=== PATIENT | male | born 1940 | race Caucasian/White ===

== ENCOUNTER 2020-03-05 09:44 | Outpatient (CLI) | payer MEDICARE, SELFPAY ==
--- NOTE | ~2020-03-05 | US_ITS ---
EXAMINATION: US carotid duplex BI DATE: 03/05/2020 10:18 INDICATION: Carotid stenosis TECHNIQUE: Grayscale, color Doppler, and pulsed Doppler images of the cervical carotid arteries were obtained. The degree of vessel stenosis is placed in one of the following categories: normal, <50%, 5 0-69%, >=70% but less than near-occlusion, near-occlusion, or total occlusion. Note that percent sten osis relative to normal distal artery lumen diameter is indirectly measured from velocity measurement s as described by Ervin, et al. Radiology 2003; 229:340-346. COMPARISON: None. FINDINGS: RIGHT: The right common carotid artery (CCA) peak systolic velocity (PSV) is 89 cm/s. The right internal car otid artery (ICA) PSV is 103 cm/s. The right ICA end-diastolic velocity (EDV) is 19 cm/s. The right I CA/CCA PSV ratio is 1.2. Grayscale and color Doppler images yield an estimate of <50% diameter reduct ion from plaque in the ICA. The external carotid artery (ECA) PSV is 79 cm/s. There is antegrade flow in the right vertebral artery. LEFT: The left CCA PSV is 95 cm/s. The left ICA PSV is 110 cm/s. The left ICA EDV is 26 cm/s. The left ICA/ CCA PSV ratio is 1.2. Grayscale and color Doppler images yield an estimate of <50% diameter reduction from plaque in the ICA. The ECA PSV is 83 cm/s. There is antegrade flow in the left vertebral artery . IMPRESSION: 1. <50% stenosis in the right internal carotid artery. 2. <50% stenosis in the left internal carotid artery. Reviewed, dictated and finalized at location B.
== END 2020-03-05 09:45 | disposition home or self-care (01) ==
LOC: CHSIMG 09:51
PROVIDERS: PCP Internal Medicine; Visit Provider Internal Medicine
DX: I65.23 Occlusion and stenosis of bilateral carotid arteries (principal)
CPT/HCPCS: 93880

== ENCOUNTER 2020-04-05 12:25 | Outpatient (CLI) | payer MEDICARE, SELFPAY ==
--- NOTE | ~2020-04-05 | US_ITS ---
EXAMINATION: US soft tissue UE LT DATE: 04/05/2020 13:01 INDICATION: Swelling at the posterior left upper arm TECHNIQUE: Multiple grayscale and Doppler ultrasound images of the region of concern at the posterior left upper arm were obtained. COMPARISON: None FINDINGS: In the region of concern there is a 5.4 x 4.5 x 2.1 cm ovoid mass which is isoechoic and with similar echotexture and septated internal architecture as the surrounding subcutaneous fat which is suspicio us for a lipoma. The underlying and adjacent musculature appears unremarkable. No abnormal fluid miguel ections identified. IMPRESSION: 1. 5.4 x 4.5 x 2.1 cm mass at the posterior left upper arm in the region of concern with relatively s imilar ultrasound appearance ascites surrounding fat most likely representing a lipoma. Would conside r CT or MRI for definitive determination. Reviewed, dictated and finalized at location A. IMPRESSION: 1. 5.4 x 4.5 x 2.1 cm mass at the posterior left upper arm in the region of con cern with relatively similar ultrasound appearance ascites surrounding fat most likely representing a lipoma. Would consider CT or MRI for definitive determin ation.
--- NOTE | ~2020-04-05 | XR_ITS ---
XR shoulder LT min 2V DATE: 04/05/2020 13:07 INDICATION: Left shoulder pain; swelling since flu shot one month ago TECHNIQUE: 4 views COMPARISON: None FINDINGS: There is degenerative change at the left acromioclavicular joint. No fracture, dislocation, periosteal reaction or bone destruction or abnormal soft tissue calcification at the left shoulder j oint is evident. IMPRESSION: Degenerative change at the left acromioclavicular joint Reviewed, dictated and finalized at location A.
== END 2020-04-05 12:26 | disposition home or self-care (01) ==
LOC: CHSIMG 12:26
PROVIDERS: PCP Internal Medicine; Visit Provider Internal Medicine
DX: M79.89 Other specified soft tissue disorders (principal); M25.512 Pain in left shoulder
CPT/HCPCS: 73030; 76882

== ENCOUNTER 2020-04-10 07:14 | Outpatient (CLI) | payer MEDICARE, SELFPAY ==
--- NOTE | ~2020-04-10 | MR_ITS ---
EXAMINATION: MR humerus LT wo/w con DATE: 04/10/2020 10:48 INDICATION: Mass and lump at the left upper limb TECHNIQUE: Magnetic resonance imaging (MRI) of the left humerus/upper limb was performed . without an d with 16 mL Multihance intravenous contrast. A marker was placed over the mass. Sequences included axial T1-weighted FSE, axial T2-weighted FS FSE, axial T1-weighted FS FSE, coronal T1-weighted FSE, c oronal PD-weighted FS FSE and sagittal PD-weighted FS FSE. Post contrast axial, sagittal and coronal T1-weighted FS FSE were also obtained. COMPARISON: Ultrasound dated 04/05/2020 FINDINGS: There is a homogeneously T1 hyperintense lipoma situated between the proximal triceps muscle and the deep and posterior margin of the deltoid muscle. The lipoma measures approximately 11.8 cm in cranioc audal length and 4.7 x 4.0 cm in maximal transaxial dimensions. No associated enhancing soft tissue c omponent. No abnormal fluid collections. Normal muscle bulk and signal at the left shoulder and upper arm. Bone alignment is normal with normal marrow signal. No left shoulder or elbow joint effusions. No pathologically enlarged left axillary lymphadenopathy. IMPRESSION: 1. 11.8 x 4.7 x 4.0 cm lipoma at the proximal posterior aspect of the left upper arm. Reviewed, dictated and finalized at location B. IMPRESSION: 1. 11.8 x 4.7 x 4.0 cm lipoma at the proximal posterior aspect of the left uppe r arm.
[2020-04-10 07:57] LABS: Estimated Glomerular Filt Rate > 60
== END 2020-04-10 07:15 | disposition home or self-care (01) ==
LOC: CHSIMG 07:15
PROVIDERS: PCP Internal Medicine; Visit Provider Internal Medicine
DX: R22.32 Localized swelling, mass and lump, left upper limb (principal)
CPT/HCPCS: 36415; 73220; A9577

== ENCOUNTER 2022-07-06 12:12 | Outpatient (CLI) | payer MEDICARE, SELFPAY ==
--- NOTE | ~2022-07-06 | US_ITS ---
EXAMINATION: US carotid duplex BI DATE: 07/06/2022 12:58 INDICATION: History of carotid stenosis. TECHNIQUE: Grayscale, color Doppler, and pulsed Doppler images of the cervical carotid arteries were obtained. The degree of vessel stenosis is placed in one of the following categories: normal, <50%, 5 0-69%, >=70% but less than near-occlusion, near-occlusion, or total occlusion. Note that percent sten osis relative to normal distal artery lumen diameter is indirectly measured from velocity measurement s as described by Ervin, et al. Radiology 2003; 229:340-346. Notes: Normal: Peak systolic velocity <125 centimeters/sec and no plaque <50%. Peak systolic velocity <125 ( EDV <40; ICA/CCA PSV ratio <2.0; used these factors only a tandem lesions or low cardiac output or co ntralateral disease) 50-69 %: PSV 125-230 (EDV 40-100; ratio 2-4) >= 70% but less than near occlusion: PSV greater than 230 (EDV > 100; ratio> 4.0) Near Occlusion: PSV that is variable; markedly narrowed lumen Occlusion: Absent flow on color/spectral Doppler and no lumen on banegas scale. COMPARISON: Ultrasound dated 03/05/2020. FINDINGS: RIGHT: The right common carotid artery (CCA) peak systolic velocity (PSV) is 76 cm/s. The right internal car otid artery (ICA) PSV is 114 cm/s. The right ICA end-diastolic velocity (EDV) is 32 cm/s. The right I CA/CCA PSV ratio is 1.5. The external carotid artery (ECA) PSV is 69 cm/s. There is antegrade flow in the right vertebral artery. LEFT: The left CCA PSV is 69 cm/s. The left ICA PSV is 154 cm/s. The left ICA EDV is 42 cm/s. The left ICA/ CCA PSV ratio is 2.2. The ECA PSV is 79 cm/s. There is antegrade flow in the left vertebral artery. IMPRESSION: 1. Less than 50% stenosis in the right internal carotid artery by sonographic criteria. 2. 50-69% stenosis in the left internal carotid artery by sonographic criteria. Reviewed, dictated and finalized at location A. RAM MANAGER TRANSPORTATION IMPRESSION: 1. Less than 50% stenosis in the right internal carotid artery by sonographic c kiersteneria. 2. 50-69% stenosis in the left internal carotid artery by sonographic criteria.
== END 2022-07-06 12:13 | disposition home or self-care (01) ==
LOC: CHSIMG 12:14
PROVIDERS: PCP Internal Medicine; Visit Provider Internal Medicine
DX: I65.23 Occlusion and stenosis of bilateral carotid arteries (principal)
CPT/HCPCS: 93880

== ENCOUNTER 2023-05-21 14:32 | Outpatient (CLI) | payer MEDICARE, SELFPAY ==
--- NOTE | ~2023-05-21 | US_ITS ---
EXAMINATION: US thyroid DATE: 05/21/2023 14:53 INDICATION: Hypothyroidism. TECHNIQUE: Multiple ultrasound images of the thyroid were obtained. COMPARISON: None. FINDINGS: The right thyroid lobe measures 3.4 x 1.0 x 1.2 cm. The left thyroid lobe measures 3.0 x 1.0 x 1.5 c m. In the right thyroid lobe, there is a 4 mm nodule. IMPRESSION: 1. Small thyroid nodule, likely not clinically significant. No follow-up is needed. Reviewed, dictated and finalized at location E. AL DRILL PRESS OPERATOR FOR PLASTIC IMPRESSION: 1. Small thyroid nodule, likely not clinically significant. No follow-up is nee ded.
== END 2023-05-21 14:33 | disposition home or self-care (01) ==
LOC: CHSIMG 14:33
PROVIDERS: PCP Internal Medicine; Visit Provider Internal Medicine
DX: E03.9 Hypothyroidism, unspecified (principal)
CPT/HCPCS: 76536

== ENCOUNTER 2023-10-22 07:05 | Outpatient (CLI) | payer MEDICARE, SELFPAY ==
--- NOTE | ~2023-10-22 | US_ITS ---
EXAMINATION: US carotid duplex BI DATE: 10/22/2023 07:45 INDICATION: Carotid stenosis. TECHNIQUE: Grayscale, color Doppler, and pulsed Doppler images of the cervical carotid arteries were obtained. The degree of vessel stenosis is placed in one of the following categories: normal, <50%, 5 0-69%, >=70% but less than near-occlusion, near-occlusion, or total occlusion. Note that percent sten osis relative to normal distal artery lumen diameter is indirectly measured from velocity measurement s as described by Ervin, et al. Radiology 2003; 229:340-346. COMPARISON: Ultrasound 07/06/2022 FINDINGS: RIGHT: The right common carotid artery (CCA) peak systolic velocity (PSV) is 94 cm/s. The right internal car otid artery (ICA) PSV is 124 cm/s. The right ICA end-diastolic velocity (EDV) is 28 cm/s. The right I CA/CCA PSV ratio is 1.3. Grayscale and color Doppler images yield an estimate of <50% diameter reduct ion from plaque in the ICA. There is antegrade flow in the right vertebral artery. LEFT: The left CCA PSV is 103 cm/s. The left ICA PSV is 151 cm/s. The left ICA EDV is 41 cm/s. The left ICA /CCA PSV ratio is 1.5. Grayscale and color Doppler images yield an estimate of <50% diameter reductio n from plaque in the ICA. There is antegrade flow in the left vertebral artery. IMPRESSION: 1. <50% stenosis in the right internal carotid artery. 2. <50% stenosis in the left internal carotid artery. Reviewed, dictated and finalized at location E.
== END 2023-10-22 07:06 | disposition home or self-care (01) ==
LOC: CHSIMG 07:08
PROVIDERS: PCP Internal Medicine; Visit Provider Internal Medicine
DX: I65.23 Occlusion and stenosis of bilateral carotid arteries (principal)
CPT/HCPCS: 93880

== ENCOUNTER → 2024-10-21 14:45 | Outpatient (REF) | payer MEDICARE, SELFPAY ==
--- OUTSIDE RECORDS SUMMARY | 2024-10-21 17:00 | XMS_ITS | Clinical Summary ---
Author Organization [facility] Address [address] [place] [address] Care Team Providers Care Forensic Social Worker Name Role Phone Unavailable Primary Care Provider Unavailabl e Source Comments [facility],non-owned Affiliates and Associated Physician Practices is amultiple site organization consisting of ambulatory clinics and hospital sitesin [place], [place], [place] and [place]. This disclosure is being madepursuant to the Care Everywhere program and may not contain all information available regarding this patient. Last updated 18.[facility] Social History Tobacco Use Types Packs/Day Years Used Date Smoking Tobacco: Never Assessed Sex and Gender Information Value Date Recorded Sex Assigned at Not on file Legal Sex Male 11:13 AM CDT Gender Identity Not on file Sexual Orientation Not on file Plan of Treatment Health Maintenance Due Date Last Done Comments DTAP/TDAP/TD VACCINES (1 - Tdap) 09/29/1959 PNEUMOCOCCAL VACCINE 50+ (1 of 1 - PCV) 1990 ZOSTER VACCINE (1 of 2) 1990 Respiratory Syncytial Virus (RSV) Vaccine Pt: or over 60 yrs (1 - 1-dose 75+ series) 09/29/2015 COVID-19 VACCINE ( - 2023-2 5 season) 2024 DEPRESSION SCREENING 07/02/2024 MEDICARE AWV CALENDAR YEAR 2024 INFLUENZA VACCINE (Season Ended) 2025 HEPATITIS B VACCINE Aged Out No longe r eligible based on patient's age to complete this topic HIB VACCINE Aged Out No longer eligi ble based on patient's age to complete this topic HPV VACCINE Aged Out No longer eligi ble based on patient's age to complete this topic MENINGOCOCCAL (Group B) VACC INE SHARED DECISION-MAKING Aged Out No longer eligibl e based on patient's age to complete this topic MENINGOCOCCAL GROUPS A/C/Y/W VACCINE Aged Out No longer eligible b ased on patient's age to complete this topic Insurance MANAGED MEDICARE ADV
--- OUTSIDE RECORDS SUMMARY | 2024-10-21 17:00 | XMS_ITS | Continuity of Care Document ---
Author Organization [facility] Address [address] [place] [address] [place] [address] Phone Care Team Providers Care Product Director Name Role Phone Prudencio Alan DO Unavailable Unavailable Advance Directives Directive Yes / No Effective Date File Name No Information Encounters Encounter Description Practice Location Reason(s) For Visit Diagnoses Date Provider Providers Copied on Encounter [facility], [address], [place], [place], [id number], [place] tel:[phone] [facility] No Information Waqas Haider. [address] [place], [address], [place]. tel:[phone] Family History Family Member Type Diagnosis Age At Onset No Information Payers Payer name Insurance type Covered republican ID Authoriza tion(s) No Information Social History Type Description Quantity Date Captured Comments Sex Male Smoking Status No Information Chief Complaint And Reason For Visit No Information Reason For Referral Reason For Referral No Information History Of Present Illness Encounter Date Complaint History Of Prese nt Illness No Information Functional Status Date Functional Assessmen t No Information Instructions Date Instruction Additional Infor mation No Information Assessments Type Assessment Date No Information Patient Care Teams Name Effective Dates (start - stop) Status Members No Information
--- OUTSIDE RECORDS SUMMARY | 2024-10-21 17:00 | XMS_ITS | Encounter Summary ---
Author Organization [facility] Address [address] [place] [address] Care Team Providers Care Narrow Gauge Engineer Name Role Phone Unavailable Primary Care Provider Unavailabl e Encounter Details Date Type Department Care Team (Late st Contact Info) Description 01/28/2020 Lab Requisition [facility] DermPath Lab [address] [place] [address] Jean-Pierre Washington MD [address] [place] [address] Social History Tobacco Use Types Packs/Day Years Used Date Smoking Tobacco: Never Assessed Sex and Gender Information Value Date Recorded Sex Assigned at Not on file Legal Sex Male 11:13 AM CDT Gender Identity Not on file Sexual Orientation Not on file documented as of this encounter Plan of Treatment Not on file documented as of this encounter Procedures Procedure Name Priority Date/Time Associated Diagnosis Comments DERMATOPATHOLOGY Routine 01/28/2020 12:0 0 AM CDT documented in this encounter Results * DERMATOPATHOLOGY (01/28/2020 12:00 AM CDT) Case Report Dermatopathology Report Case: [id number] Authorizing Provider: Jean-Pierre Washington MD Collected: 01/28/2020 12:00 AM Ordering Location: [facility] Lab Received: 01/28/2020 12:55 PM Pathologist: Fletcher Palmer MD Specimen: Skin, left distal ext FA 0 5:18 PM CDT DERMATOPATHOLOGY LABORATORY Final Diagnosis Specimen A. SKIN, left distal ext FA: DERMAL SCAR WITH OVERLYING EPIDERMAL CHANGES (L90.5) 0 5:18 PM CDT DERMATOPATHOLOGY LABORATORY Clinical History R/O HAK, scar, SCC, other. 0 5:18 PM CDT DERMATOPATHOLOGY LABORATORY Gross Description Specimen A: Received is one formalin filled container labeled with the patient's name and designated left distal ext FA. The specimen consists of a punch biopsy measuring [id number], bisected. Jar 0. 0 5:18 PM CDT DERMATOPATHOLOGY LABORATORY Microscopic Description Specimen A. SKIN, left distal ext FA: Sections show focally laminated fibroplasia and prominent blood vessels. There are plump fibrocytes and inflammation. Reactive epidermal changes are also identified consistent with a prior biopsy site. 0 5:18 PM CDT DERMATOPATHOLOGY LABORATORY Disclaimer An external and internal positive and negative controls are appropriate for the histochemical, immunohistochemical and immunofluorescence stain(s) in this case (if any), except where stated explicitly. The performance characteristics of the stain(s) cited in this report were developed and its performance characteristic determined by the Dermatopathology Laboratory at [facility], directed by Dr. Pauline Palmer. These tests need not be, and therefore are not, approved by the [place] Food and Drug Administration. The tests are used for clinical purposes. Billing Codes Specimen Charges Stain Charges 11994 1 0 5:18 PM CDT DERMATOPATHOLOGY LABORATORY Embedded Images 0 5:18 PM CDT DERMATOPATHOLOGY LABORATORY Pathology/Cytolog y TISSUE SPECIMEN FROM SKIN / Unknown 01/28/2020 01/28/2020 12:55 PM CDT us Jean-Pierre Washington MD LAB - PATHOLOGY/CYTOLOGY ORD ERABLES Final Result DERMATOPATHOLOGY LABORATORY [facility] - Department of Dermatology [address] [place] [address], [facility] [phone] documented in this encounter Visit Diagnoses Not on filedocumented in this encounter
--- OUTSIDE RECORDS SUMMARY | 2024-10-21 17:00 | XMS_ITS | Encounter Summary ---
Author Organization [facility] Address [address] [place] [address] Care Team Providers Care Sales Account Associate Name Role Phone Unavailable Primary Care Provider Unavailabl e Encounter Details Date Type Department Care Team (Late st Contact Info) Description 10/29/2019 Lab Requisition [facility] DermPath Lab [address] [place] [address] Jean-Pierre Washington MD [address] [place] [address] Social History Tobacco Use Types [...] Priority Date/Time Associated Diagnosis Comments DERMATOPATHOLOGY Routine 10/28/2019 12:0 0 AM CDT documented in this encounter Results * DERMATOPATHOLOGY (10/28/2019 12:00 AM CDT) Case Report Dermatopathology Report Case: [id number] Authorizing Provider: Jean-Pierre Washington MD Collected: 10/28/2019 12:00 AM Ordering Location: [facility] DermPath Lab Received: 10/29/2019 11:16 AM Pathologist: Fletcher Palmer MD Specimens: A) - Skin, left ulnar distal forearm B) - Skin, left upper chest 0 3:11 PM CDT DERMATOPATHOLOGY LABORATORY Final Diagnosis Specimen A. SKIN, left ulnar distal forearm: ACTINIC KERATOSIS, LICHENOID (L57.0) Specimen B. 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 The specimen consists of a shave biopsy measuring 8x7x1 mm. Jar 0. Specimen B: Received is one formalin filled container labeled with the patient's name and designated left upper chest. The specimen consists of a shave biopsy measuring 5x3x1 mm. Jar 0. 0 3:11 PM CDT DERMATOPATHOLOGY LABORATORY Microscopic Description Specimen A. SKIN, left ulnar distal forearm: There is focal parakeratosis. The lower half of the epidermis shows disorderly maturation of keratinocytes with nuclear pleomorphism. The dermis shows a band-like, chronic inflammatory infiltrate with occasional apoptotic keratinocytes and some basal vacuolar alteration. Specimen B. SKIN, left upper chest: Neutrophils, histiocytes, and multinucleated giant cells are present within the dermis. 0 3:11 PM CDT DERMATOPATHOLOGY LABORATORY Disclaimer An external and internal positive and negative controls are appropriate for the histochemical, immunohistochemical and immunofluorescence stain(s) in this case (if any), except where stated explicitly. The performance characteristics of the stain(s) cited in this report were developed and its performance characteristic determined by the Dermatopathology Laboratory at [facility], directed by Dr. Pauline Palmer. These tests need not be, and therefore are not, approved by the [place] Food and Drug Administration. The tests are used for clinical purposes. Billing Codes Specimen Charges Stain Charges 96732 35503 1 1 0 3:11 PM CDT DERMATOPATHOLOGY LABORATORY Embedded Images 0 3:11 PM CDT DERMATOPATHOLOGY LABORATORY Pathology/Cytology TISSUE SPECIMEN FROM SKIN / Unknown 10/28/2019 10/29/2019 11:16 AM CDT Miscellaneous samples (specimen) TISSUE SPECIMEN FROM SKIN / Unknown 10/28/2019 10/29/2019 11:16 AM CDT us Jean-Pierre Washington MD LAB - PATHOLOGY/CYTOLOGY ORD ERABLES Final Result DERMATOPATHOLOGY LABORATORY [facility] - Department of Dermatology [address] [place] [address], [address] [place] [address], [facility] [phone] documented in this encounter Visit Diagnoses Not on filedocumented in this encounter
--- OUTSIDE RECORDS SUMMARY | 2024-10-21 17:00 | XMS_ITS | Continuity of Care Document ---
Author Organization [facility] Address [address], [place] [address] Phone Care Team Providers Care Campus Wellness Coordinator Name Role Phone Albert Meadows OD Unavailable Unavailable Allergies, Adverse Reactions, Alerts Substance Reaction Status Criticality No Known Allergies Active No Inform ation Medications Medication Instructions Dosage Effective Dates (start - stop) Status Comments simvastatin 10 mg tablet take 1 tablet by oral route every day in the evening 10 MG - Active Protonix 20 mg tablet,delayed release take 1 tablet by oral route every day 20 MG - Active Cialis 5 mg tablet take 1 tablet by ora l route every day 5 MG - Active Procedures Procedure Date Scan Computerized; Retina New Pt Complete Advance Directives Directive Yes / No Effective Date File Name No Information Encounters Encounter Description Practice Location Reason(s) For Visit Diagnoses Date Provider Providers Copied on Encounter [facility], [facility] [place] [address], [id number], tel:[phone] [facility] No Information 8 Abdiel Price. [address], [address] [facility], [place], [place], [id number] , [place]. tel:[phone] [facility], [address], [place], [id number], tel:[phone] [facility] Baseline Vitreous degeneration, bilateralVitreous hemorrhage, left eye 8 Abdiel Price. [address], [address] [facility], [place], [place], [id number] , . tel:[phone] Referring Provider: Albert Meadows, [address], [place], [address] . tel:[phone] Family History Family Member Type Diagnosis Age At Onset No Information Payers Payer name Insurance type Covered libertarian ID Abi azevedo(s) [facility] Medicare Advantage PPO CI [id number] Social History Type Description Quantity Date Captured Comments Sex Male Smoking Status No Information Chief Complaint And Reason For Visit No Information Reason For Referral Reason For Referral No Information Plan Of Treatment Date Type Action Status Future Order: Radiology Order OC T Retina ([id number]), Ordered on: Ordered History Of Present Illness Encounter Date Complaint History Of Prese nt Illness No Information Functional Status Date Functional Assessmen t No Information Instructions Date Instruction Additional Infor mation - Secondary to PVD, mild. Monitor. RTC 1 month - Patient will be in [place]. Related to Vitreous hemorrhage, left eye - PVD OS accounts fo r pt's complaint. There is no evidence of retinal pathology (-) holes, tears or retinal detachments on 360 exam. All signs and risks of retinal detachment or tears were discussed in detail. If pt. notices any new symptoms discussed such as floaters, flashes or curtains in vision, contact office TE. Recommend pt. return 1 month for f/u Related to Vitreous degeneration, bilateral Assessments Type Assessment Date No Information Patient Care Teams Name Effective Dates (start - stop) Status Members No Information
== END ==
LOC: ANHLAB 14:45
PROVIDERS: PCP Internal Medicine; Visit Provider Physician Assistant Surgical
DX: D48.5 Neoplasm of uncertain behavior of skin (principal)
CPT/HCPCS: 88305